=== PATIENT | male | born 1990 | race Caucasian/White ===

== ENCOUNTER 2018-06-09 22:05 | Emergency (ER) | payer OTHER ==
--- OUTSIDE RECORDS SUMMARY | 2018-06-09 22:07 | XMS REPORT | Clinical Summary ---
:1990 Author Organization [facility] Address [address] [place] [address] Care Team Providers Name Role Phone Bijan Ayala MD Primary Care Provider Allergies Active Allergy Reactions Severity Noted Date Comments Latex 01/28/2017 Medications Medication Sig Dispensed Refills Start Date End Date Status colchicine 0.6 mg Take 1 tablet 30 tablet 1 04/05/2017 Active tabletIndications: (0.6 mg total) Idiopathic chronic by mouth gout of multiple daily. PRN for sites without gout attacks tophus allopurinol TAKE 2 TABLETS 180 tablet 1 02/03/2018 Active (ZYLOPRIM) 300 MG BY MOUTH EVERY tabletIndications: DAY Idiopathic chronic gout of multiple sites without tophus montelukast TAKE 1 TABLET 5 02/04/2018 Active (SINGULAIR) 10 mg BY MOUTH tablet EVERYDAY AT BEDTIME ranitidine Take 150 mg by 0 10/24/2017 Discontinued (ZANTAC) 150 MG mouth 2 (two) tablet times a day. PRN allopurinol Take 1 tablet 90 tablet 1 01/28/2017 07/25/2017 Discontinued (ZYLOPRIM) 300 MG (300 mg total) tabletIndications: by mouth Idiopathic chronic daily. gout of multiple sites without tophus naproxen Take 500 mg by 0 07/25/2017 Discontinued (NAPROSYN) 500 MG mouth 2 (two) tabletIndications: times a day Idiopathic chronic with meals. gout of multiple PRN sites without tophus benzonatate 0 07/09/2017 10/24/2017 Discontinued (TESSALON) 100 MG capsule VENTOLIN HFA 90 0 07/09/2017 10/24/2017 Discontinued mcg/actuation inhaler loratadine-pseudoe Take 1 tablet 0 10/24/2017 Discontinued pHEDrine by mouth (CLARITIN-D daily. 24-hour) 10-240 mg per 24 hr tablet meloxicam (MOBIC) Take 1 tablet 90 tablet 1 07/25/2017 10/24/2017 Discontinued 15 mg (15 mg total) tabletIndications: by mouth Idiopathic chronic daily. gout of multiple sites without tophus allopurinol 2 tablets PO 180 tablet 1 07/25/2017 02/01/2018 Discontinued (ZYLOPRIM) 300 MG daily. tabletIndications: Idiopathic chronic gout of multiple sites without tophus meloxicam (MOBIC) TAKE 1 TABLET 90 tablet 1 08/20/2017 10/24/2017 Discontinued 15 mg BY MOUTH EVERY tabletIndications: DAY Idiopathic chronic gout of multiple sites without tophus allopurinol TAKE 1 TABLET 90 tablet 1 08/20/2017 10/24/2017 Discontinued (ZYLOPRIM) 300 MG BY MOUTH EVERY tabletIndications: DAY Idiopathic chronic gout of multiple sites without tophus Active Problems Problem Noted Date DE [place] SANTOS (nonalcoholic steatohepatitis) Gout Encounters Date Type Specialty Care Team Description 04/03/2018 Office Visit Rheumatology Kd Alarcon MD Idiopathic chronic gout of multiple sites without tophus (Primary Dx); Encounter for long-term (current) use of NSAIDs; Encounter for long-term (current) use of high-risk medication; Mixed hyperlipidemia 03/17/2018 Orders Only Rheumatology Kd Alarcon MD Gout, unspecified cause, unspecified chronicity, unspecified site (Primary Dx); Long-term use of high-risk medication 02/01/2018 Refill Kd Frost MD Idiopathic chronic gout of multiple sites without tophus 10/24/2017 Office Visit Kd Frost MD Idiopathic chronic gout of multiple sites without tophus (Primary Dx) 08/20/2017 Refill Rheumatology Kd Alarcon MD Idiopathic chronic gout of multiple sites without tophus 07/25/2017 Office Visit Rheumatology Kd Alarcon MD Idiopathic chronic gout of multiple sites without tophus (Primary Dx); Encounter for long-term (current) use of NSAIDs; BMI 40.0-44.9, adult; DE [place] SANTOS (nonalcoholic steatohepatitis); Transaminitis 07/05/2017 Orders Only Rheumatology Kd Alarcon MD after 06/08/2017 Family History Medical History Relation Name Comments No Known Problems Brother Gout Father Gout Maternal Grandfather No Known Problems Mother Gout Paternal Grandfather Gout Paternal Uncle Relation Name Status Comments Brother Alive Father Alive Maternal Grandfather Alive Mother Alive Paternal Grandfather Paternal Uncle Alive Social History Tobacco Use Types Packs/Day Years Used Date Never Smoker Smokeless Tobacco: Never Used Alcohol Use Drinks/Week oz/Week Comments Yes Occasionally Sex Assigned at Date Recorded Not on file Job Start Date Occupation Industry Not on file Not on file Not on file Travel History Travel Start Travel End No recent travel history available. Last Filed Vital Signs Vital Sign Reading Time Taken Blood Pressure 136/92 04/03/2018 3:14 PM CDT Pulse 99 04/03/2018 3:14 PM CDT Temperature 36.8 C (98.3 F) 04/03/2018 3:14 PM CDT Respiratory Rate 16 04/03/2018 3:14 PM CDT Oxygen Saturation 97% 04/03/2018 3:14 PM CDT Inhaled Oxygen Concentration - - Weight 156 kg (344 lb 9.6 oz) 04/03/2018 3:14 PM CDT Height 188 cm (6' 2") 04/03/2018 3:14 PM CDT Body Mass Index 44.24 04/03/2018 3:14 PM CDT Plan of Treatment Date Type Specialty Care Team Description 10/02/2018 Office Visit Rheumatology Kd Alarcon MD [address] [address] Health Maintenance Due Date Last Done Comments HEPATITIS B VACCINES (1 of 3 - Risk 2011 3-dose series) INFLUENZA VACCINE 01/29/2018 IPV VACCINES Aged Out No longer eligible based on patient's age to complete this topic MENINGOCOCCAL VACCINE Aged Out No longer eligible based on patient's age to complete this topic Procedures Procedure Name Priority Date/Time Associated Comments Diagnosis URINALYSIS, AUTOMATED Routine 03/17/2018 4:35 Long-term use of Results for this WITH MICROSCOPY PM CDT high-risk procedure are in medication the results section. CBC WITH PLATELET AND Routine 03/17/2018 4:35 Gout, unspecified Results for this DIFFERENTIAL PM CDT cause, unspecified procedure are in chronicity, the results unspecified site section. COMPREHENSIVE Routine 03/17/2018 4:35 Gout, unspecified Results for this METABOLIC PANEL PM CDT cause, unspecified procedure are in chronicity, the results unspecified site section. C-REACTIVE PROTEIN Routine 03/17/2018 4:35 Gout, unspecified Results for this PM CDT cause, unspecified procedure are in chronicity, the results unspecified site section. SEDIMENTATION RATE Routine 03/17/2018 4:35 Gout, unspecified Results for this PM CDT cause, unspecified procedure are in chronicity, the results unspecified site section. URIC ACID LEVEL Routine 01/24/2018 4:23 Idiopathic chronic Results for this PM CDT gout of multiple procedure are in sites without the results tophus section. URINALYSIS, AUTOMATED Routine 01/24/2018 4:23 Idiopathic chronic Results for this WITH MICROSCOPY PM CDT gout of multiple procedure are in sites without the results tophus section. C-REACTIVE PROTEIN Routine 01/24/2018 4:23 Idiopathic chronic Results for this PM CDT gout of multiple procedure are in sites without the results tophus section. SEDIMENTATION RATE Routine 01/24/2018 4:23 Idiopathic chronic Results for this PM CDT gout of multiple procedure are in sites without the results tophus section. CBC WITH PLATELET AND Routine 01/24/2018 4:23 Idiopathic chronic Results for this DIFFERENTIAL PM CDT gout of multiple procedure are in sites without the results tophus section. COMPREHENSIVE Routine 01/24/2018 4:23 Idiopathic chronic Results for this METABOLIC PANEL PM CDT gout of multiple procedure are in sites without the results tophus section. URINALYSIS, AUTOMATED Routine 10/09/2017 3:32 Encounter for Results for this WITH MICROSCOPY PM CDT long-term (current) procedure are in use of NSAIDs the results section. URIC ACID LEVEL Routine 10/09/2017 3:32 Idiopathic chronic Results for this PM CDT gout of multiple procedure are in sites without the results tophus section. COMPREHENSIVE Routine 10/09/2017 3:32 Encounter for Results for this METABOLIC PANEL PM CDT long-term (current) procedure are in use of NSAIDs the results section. SEDIMENTATION RATE Routine 10/09/2017 3:32 Idiopathic chronic Results for this PM CDT gout of multiple procedure are in sites without the results tophus section. C-REACTIVE PROTEIN Routine 10/09/2017 3:32 Idiopathic chronic Results for this PM CDT gout of multiple procedure are in sites without the results tophus section. CBC WITH PLATELET AND Routine 10/09/2017 3:32 Encounter for Results for this DIFFERENTIAL PM CDT long-term (current) procedure are in use of NSAIDs the results section. C-REACTIVE PROTEIN Routine 07/05/2017 4:36 Results for this PM [employer] procedure are in the results section. CBC WITH PLATELET AND Routine 07/05/2017 4:36 Results for this DIFFERENTIAL PM [employer] procedure are in the results section. URINALYSIS, AUTOMATED Routine 07/05/2017 4:36 Results for this WITH MICROSCOPY PM [employer] procedure are in the results section. SEDIMENTATION RATE Routine 07/05/2017 4:36 Results for this PM [employer] procedure are in the results section. COMPREHENSIVE Routine 07/05/2017 4:36 Results for this METABOLIC PANEL PM [employer] procedure are in the results section. URIC ACID LEVEL Routine 07/05/2017 4:36 Results for this PM [employer] procedure are in the results section. after 06/08/2017 Results Urinalysis, automated with microscopy (03/17/2018 4:35 PM CDT)Only the most recent of4 resultswithin the time period is included. Color, UA YELLOW YELLOW [facility] Appearance CLEAR CLEAR [facility] Specific gravity, urine 1.026 1.001 - 1.035 [facility] pH, urine 5.5 5.0 - 8.0 [facility] Glucose, urine NEGATIVE NEGATIVE [facility] Bilirubin, UA NEGATIVE NEGATIVE [facility] Ketones, UA NEGATIVE NEGATIVE [facility] Occult blood, urine NEGATIVE NEGATIVE [facility] Protein, UA NEGATIVE NEGATIVE [facility] Nitrite, UA NEGATIVE NEGATIVE [facility] Leukocyte esterase, UA NEGATIVE NEGATIVE [facility] WBC, UA NONE SEEN < OR=5 /HPF [facility] RBC, UA NONE SEEN < OR=2 /HPF [facility] Squamous epithelial cells, UA NONE SEEN < OR=5 /HPF [facility] Bacteria, UA NONE SEEN NONE SEEN /HPF [facility] Hyaline casts, UA NONE SEEN NONE SEEN /LPF [facility] Specimen Urine Narrative Performed At FASTING:NO [facility] FASTING: NO Resulting Agency Comment Performing Organization Information: Site ID: [id number] [facility]: [email or web address] Lab Address: [address] [place] [id number] Director: Michelle Miller Performing Organization Address City/State/Zipcode Phone Number [facility] [address] [address] Sedimentation rate (03/17/2018 4:35 PM CDT)Only the most recent of4 resultswithin the time period is included. Sedimentation rate 1 < OR=15 mm/h [facility] [employer] Specimen Blood Narrative Performed At FASTING:NO [facility] FASTING: NO Resulting Agency Comment Performing Organization Information: Site ID: [id number] Name: [email or web address] Lab Address: [address] [place] [phone] Director: Michelle Miller Performing Organization Address City/State/Zipcode Phone Number [facility] [address] [place], [place] [phone] CBC with platelet and differential (03/17/2018 4:35 PM CDT)Only the most recent of4 resultswithin the time period is included. WBC 12.9 (H) 3.8 - 10.8 Thousand/uL [facility] RBC 5.77 4.20 - 5.80 Million/uL [facility] HGB 17.2 (H) 13.2 - 17.1 g/dL [facility] HCT 50.8 (H) 38.5 - 50.0 % [facility] MCV 88.0 80.0 - 100.0 fL [facility] MCH 29.8 27.0 - 33.0 pg [facility] MCHC 33.9 32.0 - 36.0 g/dL [facility] RDW 14.0 11.0 - 15.0 % [facility] Platelet count 304 140 - 400 Thousand/uL [facility] [employer] [employer] MPV 10.7 7.5 - 12.5 fL [facility] Neutrophils, absolute 8,733 (H) 1,500 - 7,800 cells/uL [facility] Lymphocytes, absolute 2,451 850 - 3,900 cells/uL [facility] Monocytes, absolute 1,355 (H) 200 - 950 cells/uL [facility] Eosinophils, absolute 258 15 - 500 cells/uL [facility] Basophils, absolute 103 0 - 200 cells/uL [facility] Neutrophils 67.7 % [facility] Lymphocytes 19.0 % [facility] Monocytes 10.5 % [facility] Eosinophils 2.0 % [facility] Basophils + RC 0.8 % [facility] Specimen Blood Narrative Performed At FASTING:NO [facility] FASTING: NO Resulting Agency Comment Performing Organization Information: Site ID: [id number] [facility]: [email or web address] Lab Address: [address] [place] [phone] Director: Michelle Miller Performing Organization Address City/[facility] Cent[facility] Phone Number [facility] [address] [address] C-reactive protein (03/17/2018 4:35 PM CDT)Only the most recent of4 resultswithin the time period is included. CRP 3.7 <8.0 mg/L [facility] [employer] Specimen Blood Narrative Performed At FASTING:NO [facility] FASTING: NO Resulting Agency Comment Performing Organization Information: Site ID: [id number] Name: [facility] [employer] [email or web address] Lab Address: [address] [place] [phone] Director: Michelle Miller Performing Organization Address [facility] Phone Number [facility] [address] [address] Comprehensive metabolic panel (03/17/2018 4:35 PM CDT)Only the most recent of4 resultswithin the time period is included. Glucose 81 65 - 139 mg/dL [facility] Comment: [facility] Non-fasting reference interval BUN, whole blood 16 7 - 25 mg/dL [facility] Creatinine 1.14 0.60 - 1.35 mg/dL [facility] EGFR Non-Afr. Chadian 89 > OR=60 [facility] mL/min/1.73m2 [facility] EGFR 103 > OR=60 [facility] mL/min/1.73m2 [facility] BUN/creatinine ratio NOT APPLICABLE 6 - 22 (calc) [facility] Sodium 140 135 - 146 mmol/L [facility] Potassium 4.3 3.5 - 5.3 mmol/L [facility] Chloride 101 98 - 110 mmol/L [facility] CO2 29 20 - 32 mmol/L [facility] Calcium 10.3 8.6 - 10.3 mg/dL [facility] Protein 7.9 6.1 - 8.1 g/dL [facility] Albumin, S 4.8 3.6 - 5.1 g/dL [facility] Globulin, total 3.1 1.9 - 3.7 g/dL [facility] (calc) [facility] Albumin/globulin ratio 1.5 1.0 - 2.5 (calc) [facility] Total bilirubin 0.5 0.2 - 1.2 mg/dL [facility] Alkaline phosphatase 70 40 - 115 U/L [facility] AST 45 (H) 10 - 40 U/L [facility] ALT 88 (H) 9 - 46 U/L [facility] [facility] Specimen Blood Narrative Performed At FASTING:NO [facility] FASTING: NO Resulting Agency Comment Performing Organization Information: Site ID: [id number] [facility]: [email or web address] Lab Address: [address] [place] [phone] Director: Michelle Miller Performing Organization Address City/[facility] Phone Number [facility] [address] [place] [phone] Uric acid level (01/24/2018 4:23 PM CDT)Only the most recent of3 resultswithin the time period is included. Uric acid 4.1 4.0 - 8.0 mg/dL [facility] Comment: Therapeutic target for gout patients: <6.0 mg/dL Specimen Blood Resulting Agency Comment Performing Organization Information: Site ID: [id number] Name: [email or web address] Lab Address: [address] [place] [phone] Director: Michelle Miller Performing Organization Address [facility] Phone Number [facility] [address] [place] [address] after 06/08/2017 Insurance Payer Benefit Plan / Group Subscriber ID Type Phone Address [employer] PPO OPEN CHOICE xxxxxxxxx PPO (Home) [id number] [place] [address] Advance Directives Patient has advance care planning documents on file. For more information, please contact:[facility] [address] [place] [phone]
--- NOTE | 2018-06-09 22:58 | ER ---
Nurse's Notes [facility] Name: Braydon Lombardi Age: 28 yrs Sex: Male : 1990 Arrival Date: 06/09/2018 Time: 22:06 Bed 16 Private MD: Diagnosis: Abrasion Right Cheek;Concussion Presentation: 06/09 22:18 Presenting complaint: Patient states: he was at work walking and ran into a metal piece bb from a pipe which knocked his hard hat off and caused him to reel backwards he denies falling or any LOC which occurred at approx 1300 to 1400 earlier today. Transition of care: patient was not received from another setting of care. Onset of symptoms was June 09, 2018. Risk Assessment: Do you want to hurt yourself or someone else? Patient reports no desire to harm self or others. Initial Sepsis Screen: Does the patient meet any 2 criteria? No. Patient's initial sepsis screen is negative. Does the patient have a suspected source of infection? No. Patient's initial sepsis screen is negative. Care prior to arrival: None. 22:18 Method Of Arrival: Ambulatory bb 22:18 Acuity: MARNI 4 bb Historical: - Allergies: 22:21 Latex, Natural Rubber; bb - Home Meds: 22:21 allopurinol 300 mg Oral tab 1 tab 2 times per day [Active]; bb - PMHx: 22:21 Gout; bb - PSHx: 22:21 left leg; bb - Immunization history:: Adult Immunizations up to date. - Social history:: Smoking status: Patient/guardian denies using tobacco, Patient/guardian denies using alcohol, street drugs. - Ebola Screening: : No symptoms or risks identified at this time. - Family history:: not pertinent. - Hospitalizations: : No recent hospitalization is reported. Screenin:47 Abuse screen: Denies threats or abuse. Nutritional screening: No deficits noted. tl2 Tuberculosis screening: No symptoms or risk factors identified. Fall Risk None identified. Assessment: 22:47 General: Appears in no apparent distress. uncomfortable, Behavior is calm, cooperative, tl2 appropriate for age. Pain: Complains of pain in head. Neuro: No deficits noted. Level of Consciousness is awake, alert, obeys commands, Oriented to person, place, time, situation, Denies dizziness. Cardiovascular: Denies chest pain. Respiratory: Airway is patent Respiratory effort is even, unlabored, Respiratory pattern is regular, symmetrical. GI: No signs and/or symptoms were reported involving the gastrointestinal system. : No signs and/or symptoms were reported regarding the genitourinary system. Derm: Skin is pink, warm \T\ dry. 23:15 Reassessment: Patient appears in no apparent distress at this time. Patient and/or tl2 family updated on plan of care and expected duration. Pain level reassessed. Patient is alert, oriented x 3, equal unlabored respirations, skin warm/dry/pink. Pt verbalized understanding of discharge instructions, need for follow up and prescription usage. Vital Signs: 22:21 BP 142 / 87; Pulse 93; Resp 18 S; Temp 98.9(O); Pulse Ox 97% on R/A; Weight 158.76 kg bb (R); Height 6 ft. 3 in. (190.50 cm) (R); Pain 8/10; 22:21 Body Mass Index 43.75 (158.76 kg, 190.50 cm) ED Course: 22:06 Patient arrived in ED. ag3 22:13 Bhatri Herrera FNP is [facility]. kav 22:13 Leoncio Galindo MD is Attending Physician. kav 22:20 Triage completed. bb 22:21 Arm band placed on Patient placed in an exam room, on a stretcher, on pulse oximetry. bb 22:47 Patient has correct armband on for positive identification. Bed in low position. Call tl2 light in reach. Side rails up X 1. 23:15 Nasreen Lerner RN is Primary Nurse. tl2 23:16 No provider procedures requiring assistance completed. Patient did not have IV access tl2 during this emergency room visit. Administered Medications: No medications were administered Outcome: 22:57 Discharge ordered by . kav 23:16 Discharged to home ambulatory. tl2 23:16 Condition: stable 23:16 Discharge instructions given to patient, Instructed on discharge instructions, follow up and referral plans. medication usage, Demonstrated understanding of instructions, follow-up care, medications, Prescriptions given X 1. 23:17 Patient left the ED. tl2 Signatures: Bharti Herrera FNP FNP kav Ballard, Brenda, RN RN bb Knox, Taylor, RN RN tl2 Julita Patricio ag3 Corrections: (The following items were deleted from the chart) 23:16 23:15 BP 111 / 60; Pulse 98bpm; Resp 18bpm; Pulse Ox 95% RA; tl2 tl2
--- NOTE | 2018-06-09 22:58 | EDPHYS ---
Physician Documentation [facility] Name: Braydon Lombardi Age: 28 yrs Sex: Male : 1990 Arrival Date: 06/09/2018 Time: 22:06 Bed 16 Private MD: ED Physician Leoncio Galindo HPI: 06/09 22:52 This 28 yrs old Male presents to ER via Ambulatory with complaints of Fall kav Injury. 22:52 Details of fall: The patient fell and struck "...ran into a pole". Onset: The kav symptoms/episode began/occurred acutely, 9 hour(s) ago. Associated injuries: The patient sustained right cheek, abrasion. Severity of symptoms: At their worst the symptoms were mild, just prior to arrival. The patient has not experienced similar symptoms in the past. The patient has not recently seen a physician. Historical: - Allergies: 22:21 Latex, Natural Rubber; bb - Home Meds: 22:21 allopurinol 300 mg Oral tab 1 tab 2 times per day [Active]; bb - PMHx: 22:21 Gout; bb - PSHx: 22:21 left leg; bb - Immunization history:: Adult Immunizations up to date. - Social history:: Smoking status: Patient/guardian denies using tobacco, Patient/guardian denies using alcohol, street drugs. - Ebola Screening: : No symptoms or risks identified at this time. - Family history:: not pertinent. - Hospitalizations: : No recent hospitalization is reported. ROS: 22:54 Constitutional: Negative for fever, chills, and weight loss, Eyes: Negative for injury, kav pain, redness, and discharge, Neck: Negative for injury, pain, and swelling, Cardiovascular: Negative for chest pain, palpitations, and edema, Respiratory: Negative for shortness of breath, cough, wheezing, and pleuritic chest pain, Abdomen/GI: Negative for abdominal pain, nausea, vomiting, diarrhea, and constipation, Back: Negative for injury and pain, : Negative for injury, bleeding, discharge, and swelling, MS/Extremity: Negative for injury and deformity, Skin: Negative for injury, rash, and discoloration, Neuro: Negative for headache, weakness, numbness, tingling, and seizure, Psych: Negative for depression, anxiety, suicide ideation, homicidal ideation, and hallucinations, Allergy/Immunology: Negative for hives, rash, and allergies, Endocrine: Negative for neck swelling, polydipsia, polyuria, polyphagia, and marked weight changes, Hematologic/Lymphatic: Negative for swollen nodes, abnormal bleeding, and unusual bruising. 22:54 ENT: Positive for abrasion right cheek. Exam: 22:54 Constitutional: This is a well developed, well nourished patient who is awake, alert, kav and in no acute distress. Eyes: Pupils equal round and reactive to light, extra-ocular motions intact. Lids and lashes normal. Conjunctiva and sclera are non-icteric and not injected. Cornea within normal limits. Periorbital areas with no swelling, redness, or edema. ENT: Nares patent. No nasal discharge, no septal abnormalities noted. Tympanic membranes are normal and external auditory canals are clear. Oropharynx with no redness, swelling, or masses, exudates, or evidence of obstruction, uvula midline. Mucous membranes moist. Neck: Trachea midline, no thyromegaly or masses palpated, and no cervical lymphadenopathy. Supple, full range of motion without nuchal rigidity, or vertebral point tenderness. No Meningismus. Chest/axilla: Normal chest wall appearance and motion. Nontender with no deformity. No lesions are appreciated. Cardiovascular: Regular rate and rhythm with a normal S1 and S2. No gallops, murmurs, or rubs. Normal PMI, no JVD. No pulse deficits. Respiratory: Lungs have equal breath sounds bilaterally, clear to auscultation and percussion. No rales, rhonchi or wheezes noted. No increased work of breathing, no retractions or nasal flaring. Abdomen/GI: Soft, non-tender, with normal bowel sounds. No distension or tympany. No guarding or rebound. No evidence of tenderness throughout. Back: No spinal tenderness. No costovertebral tenderness. Full range of motion. Skin: Warm, dry with normal turgor. Normal color with no rashes, no lesions, and no evidence of cellulitis. MS/ Extremity: Pulses equal, no cyanosis. Neurovascular intact. Full, normal range of motion. Neuro: Awake and alert, GCS 15, oriented to person, place, time, and situation. Cranial nerves II-XII grossly intact. Motor strength 5/5 in all extremities. Sensory grossly intact. Cerebellar exam normal. Normal gait. Psych: Awake, alert, with orientation to person, place and time. Behavior, mood, and affect are within normal limits. 22:54 Head/face: Noted is abrasion(s), that are mild, of the right cheek. Vital Signs: 22:21 BP 142 / 87; Pulse 93; Resp 18 S; Temp 98.9(O); Pulse Ox 97% on R/A; Weight 158.76 kg bb (R); Height 6 ft. 3 in. (190.50 cm) (R); Pain 8/; 22:21 Body Mass Index 43.75 (158.76 kg, 190.50 cm) bb MDM: 22:13 Medical screening is not applicable. kav 22:54 Differential diagnosis: contusion, concussion. Data reviewed: vital signs, nurses kav notes. Counseling: I had a detailed discussion with the patient and/or guardian regarding: the historical points, exam findings, and any diagnostic results supporting the discharge/admit diagnosis, to return to the emergency department if symptoms worsen or persist or if there are any questions or concerns that arise at home. Administered Medications: No medications were administered Disposition: 06/10 06:44 Co-signature as Attending Physician, Leoncio Galindo MD I agree with the assessment and km plan of care. Disposition: 06/09/18 22:57 Discharged to Home. Impression: Abrasion Right Cheek, Concussion. - Condition is Stable. - Discharge Instructions: Abrasion, [id number], Concussion, Adult, [id number]-lj-[id number]. - Prescriptions for Ibuprofen 800 mg Oral Tablet - take 1 tablet by ORAL route every 8 hours As needed take with food; 30 tablet. - Medication Reconciliation Form, Thank You Letter, Work release form form. - Follow up: Private Physician; When: 5 - 6 days; Reason: If symptoms return, Recheck today's complaints, Continuance of care, Re-evaluation by your physician. - Problem is new. - Symptoms are unchanged. - Notes: Signatures: Leoncio Galindo MD MD cha Vern, Katherine, DECORATING MACHINE TENDER DECORATING MACHINE TENDER Kylah Severino RN RN Nasreen Douglass RN RN tl2 Corrections: (The following items were deleted from the chart) 06/09 23:17 22:57 06/09/2018 22:57 Discharged to Home. Impression: Abrasion Right Cheek; tl2 Concussion. Condition is Stable. Forms are Medication Reconciliation Form, Thank You Letter, Antibiotic Education, Prescription Opioid Use. Follow up: Private Physician; When: 5 - 6 days; Reason: If symptoms return, Recheck today's complaints, Continuance of care, Re-evaluation by your physician. Problem is new. Symptoms are unchanged. kav
== END 2018-06-09 23:17 | disposition home or self-care (01) ==
LOC: ER 22:05
DX: S06.0X0A Concussion without loss of consciousness, initial encounter (principal); W01.198A Fall on same level from slipping, tripping and stumbling with subsequent striking against other object, initial encounter; Y93.9 Activity, unspecified; Y92.9 Unspecified place or not applicable; Z91.040 Latex allergy status; Z91.048 Other nonmedicinal substance allergy status; M10.9 Gout, unspecified
CPT/HCPCS: 99283

== ENCOUNTER 2018-07-16 18:26 | Emergency (ER) | payer OTHER ==
--- OUTSIDE RECORDS SUMMARY | 2018-07-16 18:28 | XMS REPORT | Clinical Summary ---
:1990 Author Organization [facility] Address [address] [place] [address] Care Team Providers Name Role Phone Bijan [...] Long-term use of high-risk medication 02/01/2018 Refill Rheumatology Kd Alarcon MD Idiopathic chronic gout of multiple sites without tophus 10/24/2017 Office Visit Rheumatology Kd Alarcon MD Idiopathic chronic gout of multiple sites without tophus (Primary Dx) 08/20/2017 Refill Rheumatology Kd Alarcon MD Idiopathic chronic gout of multiple sites without tophus 07/25/2017 Office Visit Rheumatology Kd Alarcon MD Idiopathic chronic gout of multiple sites without tophus (Primary Dx); Encounter for long-term (current) use of NSAIDs; BMI 40.0-44.9, adult; DE [place] (nonalcoholic steatohepatitis); Transaminitis after 07/15/2017 Family History Medical History Relation Name Comments [...] 10/02/2018 Office Visit Rheumatology Kd Alarcon MD [address] [address] [phone] Health Maintenance Due Date Last Done Comments INFLUENZA VACCINE 01/29/2018 Procedures Procedure Name Priority Date/Time Associated Comments [...] in use of NSAIDs the results section. after 07/15/2017 Results Urinalysis, automated with microscopy (03/17/2018 4:35 PM CDT)Only the most recent of3 resultswithin the time period is included. Color, UA YELLOW YELLOW [facility] Appearance CLEAR CLEAR [facility] [place] Specific gravity, urine 1.026 1.001 - 1.035 [facility] [place] pH, urine 5.5 5.0 - 8.0 [facility] [place] Glucose, urine NEGATIVE NEGATIVE [facility] [place] Bilirubin, UA NEGATIVE NEGATIVE [facility] [place] Ketones, UA NEGATIVE NEGATIVE [facility] [place] Occult blood, urine NEGATIVE NEGATIVE [facility] [place] Protein, UA NEGATIVE NEGATIVE [facility] [place] Nitrite, UA NEGATIVE NEGATIVE [facility] [place] Leukocyte esterase, UA NEGATIVE NEGATIVE [facility] [place] WBC, UA NONE SEEN < OR=5 /HPF [facility] [place] RBC, UA NONE SEEN < OR=2 /HPF [facility] [place] Squamous epithelial cells, UA NONE SEEN < OR=5 /HPF [facility] [place] Bacteria, UA NONE SEEN NONE SEEN /HPF [facility] [place] Hyaline casts, UA NONE SEEN NONE SEEN /LPF [facility] [place] Specimen Urine Narrative Performed At FASTING:NO [facility] FASTING: NO Resulting Agency Comment Performing Organization Information: Site ID: [id number] Name: [facility] Address: [address] [place] [phone] Director: Michelle Miller Performing Organization Address [facility] [place] [address] Sedimentation rate (03/17/2018 4:35 PM CDT)Only the most recent of3 resultswithin the time period is included. Sedimentation rate 1 < OR=15 mm/h [facility] Specimen Blood Narrative Performed At FASTING:NO [facility] FASTING: NO Resulting Agency Comment Performing Organization Information: Site ID: [id number] Name: [facility] Address: [address] [place] [id number] Director: Michelle Miller Performing Organization Address [facility] [place] [address] CBC with platelet and differential (03/17/2018 4:35 PM CDT)Only the most recent of3 resultswithin the time period is included. WBC 12.9 (H) 3.8 - 10.8 Thousand/uL [facility] RBC 5.77 4.20 - 5.80 Million/uL [facility] HGB 17.2 (H) 13.2 - 17.1 g/dL [facility] HCT 50.8 (H) 38.5 - 50.0 % [facility] MCV 88.0 80.0 - 100.0 fL [facility] MCH 29.8 27.0 - 33.0 pg [facility] MCHC 33.9 32.0 - 36.0 g/dL [facility] RDW 14.0 11.0 - 15.0 % [facility] Platelet count 304 140 - 400 Thousand/uL [facility] MPV 10.7 7.5 - 12.5 fL [facility] Neutrophils, absolute 8,733 (H) 1,500 - 7,800 cells/uL [facility] Lymphocytes, absolute 2,451 850 - 3,900 cells/uL [facility] Monocytes, absolute 1,355 (H) 200 - 950 cells/uL [facility] Eosinophils, absolute 258 15 - 500 cells/uL [facility] Basophils, absolute 103 0 - 200 cells/uL [facility] Neutrophils 67.7 % [facility] Lymphocytes 19.0 % [facility] Monocytes 10.5 % [facility] Eosinophils 2.0 % [facility] [place] Basophils + RC 0.8 % [facility] [place] Specimen Blood Narrative Performed At FASTING:NO [facility] FASTING: NO Resulting Agency Comment Performing Organization Information: Site ID: [id number] Name: [facility] Address: [address] [place] [phone] Director: Michelle Miller Performing Organization Address City/[facility] Phone Number [facility] [address] [address] C-reactive protein (03/17/2018 4:35 PM CDT)Only the most recent of3 resultswithin the time period is included. CRP 3.7 <8.0 mg/L [facility] Specimen Blood Narrative Performed At FASTING:NO [facility] FASTING: NO Resulting Agency Comment Performing Organization Information: Site ID: [id number] Name: [facility] Address: [address] [place] [id number] Director: Michelle Miller Performing Organization Address City/[facility] Phone Number [facility] [address] [address] Comprehensive metabolic panel (03/17/2018 4:35 PM CDT)Only the most recent of3 resultswithin the time period is included. Glucose 81 65 - 139 mg/dL [facility] Comment: [place] Non-fasting reference interval BUN, whole blood 16 7 - 25 mg/dL [facility] Creatinine 1.14 0.60 - 1.35 mg/dL [facility] EGFR Non-Afr. Portuguese 89 > OR=60 [facility] mL/min/1.73m2 [place] EGFR 103 > OR=60 [facility] mL/min/1.73m2 [place] BUN/creatinine ratio NOT APPLICABLE 6 - 22 (calc) [facility] Sodium 140 135 - 146 mmol/L [facility] Potassium 4.3 3.5 - 5.3 mmol/L [facility] Chloride 101 98 - 110 mmol/L [facility] CO2 29 20 - 32 mmol/L [facility] [place] Calcium 10.3 8.6 - 10.3 mg/dL [facility] Protein 7.9 6.1 - 8.1 g/dL [facility] Albumin, S 4.8 3.6 - 5.1 g/dL [facility] Globulin, total 3.1 1.9 - 3.7 g/dL [facility] (calc) [place] Albumin/globulin ratio 1.5 1.0 - 2.5 (calc) [facility] [place] Total bilirubin 0.5 0.2 - 1.2 mg/dL [facility] Alkaline phosphatase 70 40 - 115 U/L [facility] AST 45 (H) 10 - 40 U/L [facility] [place] ALT 88 (H) 9 - 46 U/L [facility] Specimen Blood Narrative Performed At FASTING:NO [facility] FASTING: NO Resulting Agency Comment Performing Organization Information: Site ID: [id number] Name: [facility] Address: [address] [place] [phone] Director: Michelle Miller Performing Organization Address City/State/Zipcode Phone Number [facility] [address] [address] Uric acid level (01/24/2018 4:23 PM CDT)Only the most recent of2 resultswithin the time period is included. Uric acid 4.1 4.0 - 8.0 mg/dL [facility] Comment: Therapeutic target for gout patients: <6.0 mg/dL Specimen Blood Resulting Agency Comment Performing Organization Information: Site ID: [id number] Name: [facility] Address: [address] [place] [address] Director: Michelle Miller Performing Organization Address City/State/Zipcode Phone Number [facility] [address] [place] [address] after 07/15/2017 Insurance Payer Benefit Plan / Group Subscriber ID Type Phone Address [employer]ET[employer] A[employer] PPO OPEN CHOICE xxxxxxxxx PPO (Home) [address] [facility] [address] [place] [address] Advance Directives Patient has advance care planning documents on file. For more information, please contact:Charlie Savage[address] [place] [address]
--- NOTE | 2018-07-16 19:23 | RAD REPORT ---
EXAM DESCRIPTION: CT - Head Brain Wo Cont - 07/16/2018 7:16 pm CLINICAL HISTORY: HEADACHE Drowsiness COMPARISON: No comparisons TECHNIQUE: All CT scans are performed using dose optimization technique as appropriate and may inclu de automated exposure control or mA/KV adjustment according to patient size. FINDINGS: No intracranial hemorrhage, hydrocephalus or extra-axial fluid collection.No areas of brai n edema or evidence of midline shift. The paranasal sinuses and mastoids are clear. The calvarium is intact. IMPRESSION: No acute intracranial abnormality.
--- NOTE | 2018-07-16 19:40 | EDPHYS ---
Physician Documentation [facility] Name: Braydon Lombardi Age: 28 yrs Sex: Male : 1990 Arrival Date: 07/16/2018 Time: 18:30 Bed 6 Private MD: None, None ED Physician Noel Delgadillo HPI: 07/16 19:30 This 28 yrs old Male presents to ER via Ambulatory with complaints of pm1 Headache. 19:30 The patient complains of pain to the forehead. The patient describes the headache as pm1 Electric-like sensation across forehead. Associated signs and symptoms: Pertinent positives: dizziness, Pertinent negatives: fever, nausea, neck stiffness, Photophobia rash, sinus congestion, sinus tenderness, vision changes, vision loss, vomiting, weakness, vertigo. Severity of symptoms: in the emergency department the pain has improved. Headache History: The patient has had previous headaches and this one is different than previous episodes. The symptoms are alleviated by nothing. the symptoms are aggravated by nothing. Patient walked into a valve handle on 06/09/2018 at work. The valve hit his right cheek and the bridge of his nose. On that day, he presented to the ER here and was diagnosed with a concussion. He has had a headache since then. He reports that the headache was on the left side of his head then move to the surface of his skull on both sides. Now he is having electric like shocks across his forehead. Historical: - Allergies: 18:34 Latex, Natural Rubber; hb - Home Meds: 18:34 allopurinol 300 mg Oral tab 1 tab 2 times per day [Active]; hb - PMHx: 18:34 Gout; hb - PSHx: 18:34 left leg; hb - Immunization history:: Adult Immunizations up to date. - Social history:: Smoking status: Patient/guardian denies using tobacco. - Ebola Screening: : No symptoms or risks identified at this time. ROS: 19:30 Constitutional: Negative for fever, chills, and weight loss, Eyes: Negative for injury, pm1 pain, redness, and discharge, ENT: Negative for injury, pain, and discharge, Neck: Negative for injury, pain, and swelling, Cardiovascular: Negative for chest pain, palpitations, and edema, Respiratory: Negative for shortness of breath, cough, wheezing, and pleuritic chest pain, Abdomen/GI: Negative for abdominal pain, nausea, vomiting, diarrhea, and constipation, Back: Negative for injury and pain, : Negative for injury, bleeding, discharge, and swelling, MS/Extremity: Negative for injury and deformity, Skin: Negative for injury, rash, and discoloration. 19:30 Neuro: Positive for dizziness, headache, Negative for numbness, syncope, near syncope, tingling, weakness. Exam: 19:30 Constitutional: This is a well developed, well nourished patient who is awake, alert, pm1 and in no acute distress. Head/Face: Normocephalic, atraumatic. Eyes: Pupils equal round and reactive to light, extra-ocular motions intact. Lids and lashes normal. Conjunctiva and sclera are non-icteric and not injected. Cornea within normal limits. Periorbital areas with no swelling, redness, or edema. ENT: Nares patent. No nasal discharge, no septal abnormalities noted. Tympanic membranes are normal and external auditory canals are clear. Oropharynx with no redness, swelling, or masses, exudates, or evidence of obstruction, uvula midline. Mucous membranes moist. Neck: Trachea midline, no thyromegaly or masses palpated, and no cervical lymphadenopathy. Supple, full range of motion without nuchal rigidity, or vertebral point tenderness. No Meningismus. Chest/axilla: Normal chest wall appearance and motion. Nontender with no deformity. No lesions are appreciated. Cardiovascular: Regular rate and rhythm with a normal S1 and S2. No gallops, murmurs, or rubs. Normal PMI, no JVD. No pulse deficits. Respiratory: Lungs have equal breath sounds bilaterally, clear to auscultation and percussion. No rales, rhonchi or wheezes noted. No increased work of breathing, no retractions or nasal flaring. Abdomen/GI: Soft, non-tender, with normal bowel sounds. No distension or tympany. No guarding or rebound. No evidence of tenderness throughout. Back: No spinal tenderness. No costovertebral tenderness. Full range of motion. Skin: Warm, dry with normal turgor. Normal color with no rashes, no lesions, and no evidence of cellulitis. MS/ Extremity: Pulses equal, no cyanosis. Neurovascular intact. Full, normal range of motion. 19:30 Neuro: Orientation: is normal, Mentation: is normal, Cranial nerves: CN II- XII are normal as tested, Cerebellar function: normal finger to nose testing, Motor: moves all fours, Sensation: is normal, no obvious gross deficits, Gait: is steady, at a normal pace, without difficulty. Vital Signs: 18:34 BP 154 / 109; Pulse 100; Resp 18; Temp 97.4; Pulse Ox 100% on R/A; Pain 0/10; hb 19:54 BP 136 / 93; Pulse 87; Resp 17; Pulse Ox 100% on R/A; Pain 2/10; ed1 MDM: 18:41 Patient medically screened. pm1 19:38 Data reviewed: vital signs. Data interpreted: Pulse oximetry: on room air is 100 %. pm1 Interpretation: normal. Counseling: I had a detailed discussion with the patient and/or guardian regarding: the historical points, exam findings, and any diagnostic results supporting the discharge/admit diagnosis, radiology results, the need for outpatient follow up, to return to the emergency department if symptoms worsen or persist or if there are any questions or concerns that arise at home. 07/16 18:58 Order name: CT Head Brain wo Cont; Complete Time: 19:30 pm1 Administered Medications: No medications were administered Disposition: 07/16/18 19:39 Discharged to Home. Impression: Postconcussional syndrome. - Condition is Stable. - Discharge Instructions: Post-Concussion Syndrome. - Prescriptions for Tramadol 50 mg Oral Tablet - take 1 tablet by ORAL route every 8 hours as needed; 20 tablet. - Medication Reconciliation Form, Thank You Letter, Prescription Opioid Use form. - Follow up: Emergency Department; When: As needed; Reason: Worsening of condition. Follow up: Private Physician; When: 2 - 3 days; Reason: Recheck today's complaints, Continuance of care, Re-evaluation by your physician. - Problem is new. - Symptoms have improved. Addendum: 07/18/2018 07:13 Co-signature as Attending Physician, Noel Delgadillo MD. r n Signatures: Dispatcher [employer] EDMS Noel Delgadillo MD MD rn Riggs, Erika RN RN ed1 Bharath Matos, [employer] REPAIRER [employer] REPAIRER pm1 Cait Mcintyre RN RN Corrections: (The following items were deleted from the chart) 07/16 19:55 19:39 07/16/2018 19:39 Discharged to Home. Impression: Postconcussional syndrome. ed1 Condition is Stable. Forms are Medication Reconciliation Form, Thank You Letter, Antibiotic Education, Prescription Opioid Use. Follow up: Emergency Department; When: As needed; Reason: Worsening of condition. Follow up: Private Physician; When: 2 - 3 days; Reason: Recheck today's complaints, Continuance of care, Re-evaluation by your physician. Problem is new. Symptoms have improved. pm1
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
== END 2018-07-16 19:55 | disposition home or self-care (01) ==
LOC: ER 18:26
DX: F07.81 Postconcussional syndrome (principal); W22.8XXS Striking against or struck by other objects, sequela; M10.9 Gout, unspecified; Z79.899 Other long term (current) drug therapy
CPT/HCPCS: 70450; 99284

== ENCOUNTER 2024-08-18 20:30 | Emergency (ER) | payer OTHER ==
--- NOTE | 2024-08-18 21:32 | RAD REPORT ---
EXAMINATION: CT HEAD WITHOUT CONTRAST CT CERVICAL SPINE WITHOUT CONTRAST CLINICAL INDICATION: Male, 34 years old. head injury TECHNIQUE: Axial CT images from the skull base to the vertex without intravenous contrast. Axial CT i mages through the cervical spine were obtained without intravenous contrast. Sagittal and coronal reformatted images were created from the data set. Coronal and sagittal reformatted images were creat ed from the data set. One or more of the following dose reduction techniques were used: Automated exposure control, adjustment of the mA and/or kV according to patient size, and/or iterative reconstr uction. Unless otherwise specified, incidental findings do not require dedicated imaging follow-up. [id number]. COMPARISON: No prior exam. FINDINGS: Head: INTRACRANIAL: No acute intracranial hemorrhage. No hydrocephalus. No mass effect or midline shift. No significant white matter disease VASCULATURE: No visualized abnormalities in the arteries or dural venous sinuses. SCALP/SKULL: No significant soft tissue or osseous abnormalities. SINUSES: The visualized paranasal sinuses and mastoid air cells are predominantly clear. Cervical spine: ALIGNMENT: Reversal of the normal cervical lordosis. BONE: Vertebral body heights are maintained. No aggressive osseous lesions. DEGENERATIVE CHANGES: None significant. SOFT TISSUE: No significant abnormalities in the soft tissue of the neck. The visualized lung apices are clear. IMPRESSION: No acute intracranial abnormality. No acute fracture or traumatic malalignment of the cervical spine.
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
[2024-08-19 02:17] VITALS: O2SAT 97
[2024-08-19 02:18] VITALS: BP 128/82; TEMP 98.2
== END 2024-08-18 22:15 | disposition home or self-care (01) ==
LOC: ER 20:30
DX: S09.90XA Unspecified injury of head, initial encounter (principal); V49.40XA Driver injured in collision with unspecified motor vehicles in traffic accident, initial encounter
CPT/HCPCS: 70450; 72125